=== PATIENT | female | born 1980 | race Two or more races ===

== ENCOUNTER 2018-08-07 20:15 | Emergency (ER) | payer OTHER ==
[~2018-08-07] VITALS: Ht 180.3 cm; Wt 128.8 kg
[2018-08-07] MEDS ORDERED: HYZAAR 100-12.1 EACH (20:26)
== END 2018-08-07 22:14 | disposition home or self-care (01) ==
LOC: ER 20:15
DX: J11.1 Influenza due to unidentified influenza virus with other respiratory manifestations (principal)